=== PATIENT | female | born 1995 | race Hispanic/Latino ===

== ENCOUNTER 2019-10-08 21:18 | Observation (INO) | payer MEDICAID ==
[~2019-10-08] VITALS: Ht 149.9 cm; Wt 54.9 kg
[2019-10-08] MEDS ORDERED: LACTATED RINGERS 1000ML 1,000 ML IV SCH (21:45)
[2019-10-08 22:15] LABS: BILIRUBIN,URINE Negative (NEGATIVE); COLOR,URINE Yellow (YELLOW); GLUCOSE, URINE (UA) Negative (NEGATIVE); KETONES,URINE Negative (NEGATIVE); LEUKOCYTE ESTERASE ,URINE Moderate (NEGATIVE); NITRATE,URINE Negative (NEGATIVE); OCCULT BLOOD,URINE Negative (NEGATIVE); PROTEIN,URINE Negative (NEGATIVE)
[2019-10-08 22:20] LABS: APPEARANCE,URINE CLEAR (CLEAR)
[2019-10-08 22:38] LABS: BACTERIA,URINE Moderate /HPF (None Seen); RBC,URINE 0-1 /HPF (0-1)
== END 2019-10-08 23:35 | disposition home or self-care (01) ==
LOC: EDH 21:18 → LDH 21:19
PROVIDERS: ADMIT Obstetrics & Gynecology; ATTEND Obstetrics & Gynecology
DX: O36.8130 Decreased fetal movements, third trimester, not applicable or unspecified (principal); O99.89 Other specified diseases and conditions complicating pregnancy, childbirth and the puerperium; M54.5 Low back pain; O26.893 Other specified pregnancy related conditions, third trimester; R10.30 Lower abdominal pain, unspecified; Z3A.36 36 weeks gestation of pregnancy
CPT/HCPCS: 76819; 81001; 99284; G0378 ×2

== ENCOUNTER 2019-12-02 06:32 | Day surgery (SDC) | payer MEDICAID ==
[2019-12-01 15:01] VITALS: BP 112/65
[2019-12-01 15:06] LABS: BASOPHILS % (AUTO) 0.5 % (0.0-5.0); EOSINOPHILS % (AUTO) 0.8 % (0.0-8.0); LYMPHOCYTES % (AUTO) 28.9 % (21.0-51.0); MEAN CORPUSCULAR HEMOGLOBIN 26.9 pg (27.0-33.0); MEAN CORPUSCULAR HGB CONC 32.1 g/dL (32.0-36.0); MEAN CORPUSCULAR VOLUME 84.1 fL (79-99); MONOCYTES % (AUTO) 7.6 % (3.0-13.0); PLATELET COUNT (AUTO) 265 K/uL (130-400); RED BLOOD CELL COUNT(AUTO) 4.64 MIL/uL (4.00-5.50); RED CELL DISTRIBUTION WIDTH 17.9 % (11.0-15.5); WHITE BLOOD COUNT (AUTO) 6.5 K/uL (4.8-10.8)
[~2019-12-02] VITALS: Ht 149.9 cm; Wt 50.8 kg
[2019-12-02] VITALS (18 sets, daily range): BP systolic 105–125; BP diastolic 55–73
[~2019-12-02 06:32] MED LIST: CEFAZOLIN SODIUM 1 GM VIAL IVP SCH; LACTATED RINGERS 1000ML 1,000 ML IV SCH
[2019-12-02] MEDS ORDERED: BUPIVACAINE/PF 0.25% 30ML VIAL IJ ONE (07:14)
[2019-12-02] MEDS ORDERED: DEXAMETHASONE SOD PHOSPHATE 10MG/ML 1ML VIAL ONE (07:19)
[2019-12-02] MEDS ORDERED: MIDAZOLAM HCL 1 MG/ML 2ML VIAL ONE (07:19)
[2019-12-02] MEDS ORDERED: LIDOCAINE PF 2% 5ML ABBOJECT ONE (07:19)
[2019-12-02] MEDS ORDERED: FENTANYL CITRATE PF 50 MCG/1 ML 2ML VIAL ONE ×2 (07:20→08:27)
[2019-12-02] MEDS ORDERED: ROCURONIUM 10MG/1ML SYR 10 MG/ML ML ONE (07:20)
[2019-12-02] MEDS ORDERED: ONDANSETRON HCL 4 MG/2 ML VIAL ONE (07:20)
[2019-12-02] MEDS ORDERED: GLYCOPYRROLATE 1 MG/5 ML SYRINGE ONE (07:20)
[2019-12-02] MEDS ORDERED: PROPOFOL 10 MG/ML 20ML VIAL IV ONE (07:20)
[2019-12-02] MEDS ORDERED: SUGAMMADEX SODIUM 200 MG/2 ML VIAL IV ONE (08:49)
[2019-12-02] MEDS ORDERED: MEPERIDINE-PF 25 MG/ML SYG ONE ×2 (09:17→09:27)
--- NOTE | 2019-12-02 10:00 | NUR ---
ASSESSMENT PT HERE FROM PACU WITH STAFF MACK SPAIN. PT AAOX3. IGOR PAD IN PLACE. DRY AND INTACT. BOYFRIEND AT BEDSIDE.
--- NOTE | 2019-12-02 10:50 | NUR ---
DISCHARGE ORAL AND WRITTEN DISCHARGE INSTRUCTIONS GIVEN TO PT AND BOYFRIEND ALONG WITH PRESCRIPTION. NO OTHER QUESTIONS AT THIS TIME.
== END 2019-12-02 11:00 | disposition home or self-care (01) ==
LOC: DAH 06:32
PROVIDERS: ATTEND Obstetrics & Gynecology
DX: Z30.2 Encounter for sterilization (principal)
CPT/HCPCS: 36415; 58670; 84703; 85025; 86850; 86870; 86900; 86901; A4215; A4221; A4222; A4223; A4351; A4606; A4663; A4930; A6260; C1769 ×3; G0168; J0690; J1100; J2001; J2175 ×2; J2250; J2405; J2704; J3010 ×2; J3490 ×2; J7120 ×2